=== PATIENT | female | born 1980 | race Caucasian/White ===

== ENCOUNTER → 2023-01-08 08:55 | Outpatient (REF) | payer BC, SELFPAY ==
--- NOTE | 2023-01-08 09:06 | CA_ITS ---
Transthoracic Echocardiogram Patient (Last, First, Middle): Elizabeth Gray, Gender: Female Date of : 1980 Age: 42 Procedure Date: 01/08/2023 Procedure Type: Transthoracic Echocardiogram Location: OP Height: 177.8 cm Weight: 83.92 kg BSA: 2.02 m2 Heart Rate: 68 bpm BP: 110 / 70 mmHg Remote [employer] Underwriter: TO Referring MD: Amalia Pena MD Symptoms: R06.00 [id number] Study Quality: Adequate ECG Rhythm: Sinus Conclusions: - The left ventricular systolic function is normal. The calculated ejection fraction is 56% by biplane method. - No obvious valvular pathology seen on this study. Findings Left Ventricle Normal left ventricular cavity size. The left ventricular systolic function is normal. The calculated ejection fraction is 56% by biplane method. There is no evidence of regional wall motion abnormalities. Diastolic function is normal for age. Right Ventricle Normal right ventricular cavity size and systolic function. Atria Both atria are normal in size. Aortic Valve There is a normal trileaflet aortic valve. There is mild calcification of the aortic valve. There is no aortic valve stenosis. There is no aortic valve regurgitation. Mitral Valve The mitral valve appears normal. There is no mitral valve regurgitation. There is no mitral valve stenosis. Pulmonic Valve The pulmonic valve is likely normal. Tricuspid Valve There is no tricuspid valve regurgitation. Tricuspid regurgitation envelope is inadequate for calculation of right ventricular systolic pressure. Great Vessels The asc aorta is normal in size. Venous The inferior vena cava is normal in size and collapses greater than 50% with inspiration. Pericardium/Pleural There is no evidence of pericardial effusion. Prior Study Comparison No prior study available for comparison. Recommendations, Care & Conclusions No obvious valvular pathology seen on this study. Measurements 2D Linear Measurements IVSd: 1.00 0.6-0.9/0.6-1.0 cm LVIDd: 4.20 3.9-5.3/4.2-5.9 cm LVIDd Index: 2.08 2.4-3.2/2.2-3.1 cm/m2 LVIDs: 2.80 2.0-3.6 cm LVPWd: 1.00 0.7-1.1 cm LA Diam: 3.10 2.7-3.8/3.0-4.0 cm LAIDs Index: 1.53 1.5-2.3 cm/m2 LV Mass: 170.81 67-162/88-224 g LV Mass Index: 84.56 43-95/49-115 g/m2 LVOT Diam: 2.20 3.0+(-)1.3 cm 2D Systolic Function EF 4C: 57.40 >55% EF 2C: 54.40 >55% EF BiP: 55.90 >55% Mitral Valve MV Pk E: 0.38 MV PK A: 0.36 MV Decel Time: 254.00 E/A: 1.10 E'Lateral: 11.50 E'Medial: 8.16 E/E' Med: 4.70 E/E' Lat: 3.30 PHT: 74.00 MVA PHT: 2.97 Decel Plumas: 1.50 Aortic Valve AoV Pk Karlos: 1.23 AoV Mn Karlos: 0.87 AoV VTI: 0.25 AoV Pk Grad: 6.00 Aov Mn Grad: 3.00 MITCH Cont.VTI: 3.08 LVOT LVOT Pk Karlos: 0.93 LVOT Mn Karlos: 0.63 LVOT VTI: 0.21 LVOT Pk Grad: 3.00 LVOT Mn Grad: 2.00 LVOT Diam: 2.20 LVOT Area: 3.80 Diastolic Function MV Pk E: 0.38 MV Pk A: 0.36 E/A: 1.10 E'Medial: 8.16 E/E' Med: 4.70 E' Laterial: 11.50 E/E' Lat: 3.30 Right Ventricle TAPSE (mm): 20.70 TVS' Karlos: 11.40 Tricuspid Valve RA Press: 3.00 Great Vessels Aorta Sinus of Valsalva: 3.20 2.0-3.5 cm Ao Asc: 3.00 2.1-3.4 cm Updated in Other Vendor System with Status of Final Ton Palma MD electronically signed on 01/09/2023 9:38:54 AM with status of Final
== END ==
LOC: HO.CARD 08:55
PROVIDERS: Visit Provider Internal Medicine Cardiovascular Disease
DX: R06.00 Dyspnea, unspecified (principal)
CPT/HCPCS: 93306

== ENCOUNTER → 2023-01-08 09:06 | Outpatient (BNV) | payer BC, SELFPAY | PROVIDERS: Visit Provider Internal Medicine | DX: I35.8 Other nonrheumatic aortic valve disorders (principal) | CPT/HCPCS: 93306 ==